=== PATIENT | male | born 1960 | race Caucasian/White ===

== ENCOUNTER 2018-03-27 08:59 | Emergency (ER) | payer MEDICARE, OTHER ==
[~2018-03-27] VITALS: Ht 172.7 cm; Wt 90.7 kg
--- NOTE | 2018-03-27 09:22 | PHYS DOC ---
Past History Past Medical History: COPD, Diabetes, Hypertension Past Surgical History: Cholecystectomy, Other Alcohol Use: Rarely Drug Use: Marijuana Adult General Chief Complaint Chief Complaint: SHORTNESS OF BREATH HPI HPI Patient is a 58-year-old male who presents with complaint of cough and shortness of breath for the last week and a half. Patient states that shortness of breath is getting worse with time and states that he has had fever as well. He states that cough is been productive but he is having some difficulty getting sputum up. He denies any chest pain. Patient states that shortness of breath is worsened with minimal exertion. He denies any lower extremity swelling or pain. Review of Systems Review of Systems Constitutional: Complains of fever and chills [] Respiratory: Complains of cough and shortness of breath [] Cardiovascular: No additional information not addressed in HPI [] GI: Denies abdominal pain, nausea, vomiting or diarrhea [] Neurologic: Denies headache, focal weakness or sensory changes [] All other systems were reviewed and found to be within normal limits, except as documented in this note. Current Medications Current Medications Current Medications Medications (Trade) Dose Ordered Sig/Fidencio Start Time Stop Time Status Last Admin Dose Admin Albuterol/ Ipratropium (Duoneb) 3 ml 1X ONCE 03/27/18 09:30 03/27/18 09:31 UNV Physical Exam Physical Exam Constitutional: Well developed, well nourished, no acute distress, non-toxic appearance. [] HENT: Normocephalic, atraumatic, bilateral external ears normal, oropharynx moist, no oral exudates, nose normal. [] Eyes: PERRLA, EOMI, conjunctiva normal, no discharge. [] Neck: Normal range of motion, no tenderness, supple, no stridor. [] Cardiovascular: Regular rate and rhythm [] Lungs & Thorax: Fairly good air movement is noted throughout with inspiratory rhonchi bilaterally to auscultation [] Abdomen: Bowel sounds normal, soft, no tenderness. [] Skin: Warm, dry, no erythema, no rash. [] Extremities: No tenderness, no cyanosis, no clubbing, ROM intact, no edema. [] Neurologic: Alert and oriented X 3, no focal deficits noted. [] Current Patient Data Vital Signs Vital Signs Date Time Temp Pulse Resp B/P (MAP) Pulse Ox O2 Delivery O2 Flow Rate FiO2 03/27/18 09:14 98.2 80 24 93 Room Air EKG EKG EKG demonstrates sinus bradycardia with rate of 46.[] Radiology/Procedures Radiology/Procedures [] Impressions: Chest x-ray demonstrates no acute process. Course & Med Decision Making Course & Med Decision Making Pertinent Labs and Imaging studies reviewed. (See chart for details) [] Dragon Disclaimer Dragon Disclaimer This electronic medical record was generated, in whole or in part, using a voice recognition dictation system. Departure Departure: Impression: Primary Impression: Influenza A Additional Impression: Bronchitis Disposition: HOME, SELF-CARE Condition: STABLE Referrals: PCP,NO (PCP) Patient Instructions: Acute Bronchitis, Influenza, Adult Scripts Guaifenesin/Codeine Phosphate (CHERATUSSIN AC SYRUP) 118 Ml Liquid 5 ML PO PRN Q6HRS PRN for COUGH, #120 ML Prov: JOSE RODRIGUEZ Jr. DO 03/27/18 Amoxicillin/Potassium Clav (AUGMENTIN 875-125 TABLET) 1 Each Tablet 1 TAB PO BID for infection, #20 TAB Prov: JOSE RODRIGUEZ Jr. DO 03/27/18 Problem Qualifiers JOSE RODRIGUEZ Jr. DO Mar 27, 2018 09:22
[2018-03-27] MEDS ORDERED: IPRATRPIUM/ALBUTEROL 0.5/2.5MG 3 ML NEBU. NEB ONE (09:30)
--- NOTE | 2018-03-27 09:34 | RAD ---
Exam performed: 2 views of the chest. Indication: COUGH, FEVER X 4 DAYS Date of Service: 03/27/2018 9:19 AM . Comparison : None available Findings: PA and lateral radiographs of the chest reveal a normal cardiomediastinal contour. The lungs are clear. No pleural fluid is seen. The visualized osseous structures are unremarkable. Impression: No acute cardiopulmonary process seen. Electronically signed by: Tomasa Resendez MD (03/27/2018 9:29 AM) [place] [id number]
[2018-03-27 09:58] LABS: BASO # 0.1 x10^3/uL (0.0-0.2); BASO % 1 % (0-3); EOS % 0 % (0-3); HEMATOCRIT 46.5 % (39.0-53.0); LYMPH % 17 % (24-48); MEAN CORPUSCULAR HEMOGLOBIN 30 pg (25-35); MEAN CORPUSCULAR HGB CONC 34 g/dL (31-37); MEAN CORPUSCULAR VOLUME 88 fL (79-100); MONO # 0.6 x10^3/uL (0.0-1.1); MONO % 10 % (0-9); NEUT # 4.1 x10^3uL (1.8-7.7); NEUT % 71 % (31-73); PLATELET COUNT 164 x10^3/uL (140-400); RED BLOOD COUNT 5.29 x10^6/uL (4.30-5.70); RED CELL DISTRIBUTION WIDTH 14.1 % (11.5-14.5); WHITE BLOOD COUNT 5.8 x10^3/uL (4.0-11.0)
[2018-03-27] MEDS ORDERED: ALBUTEROL SULFATE 2.5 MG/3 ML NEBU. ONE (10:14)
[2018-03-27 10:17] LABS: ALBUMIN 3.9 g/dL (3.4-5.0); ALBUMIN/GLOBULIN RATIO 1.1 (1.0-1.7); CALCIUM 8.3 mg/dL (8.5-10.1); GFR 76.5; POTASSIUM 3.1 mmol/L (3.5-5.1); TOTAL BILIRUBIN 0.6 mg/dL (0.2-1.0); TOTAL PROTEIN 7.6 g/dL (6.4-8.2)
[2018-03-27 10:25] LABS: INFLUENZA A PATIENT POSITIVE (NEGATIVE); INFLUENZA B PATIENT NEGATIVE (NEGATIVE)
[2018-03-27] MEDS ORDERED: AMOX1TAB61 PO (11:00)
[2018-03-27] MEDS ORDERED: GUAI118L20 PO (11:00)
[2018-03-27 11:08] VITALS: BP 118/55
--- NOTE | 2018-03-27 18:07 | EKG ---
[address] [address] Test Date: 2018-03-27 Test Time: 09:50:46 Pat Name: ALISE STANTON Department: Room: Gender: M [employer] Professor: : [id number] Requested By: JOSE RODRIGUEZ Order Number: [id number] Reading MD: Americo Mccrary MD Measurements Intervals [place] Rate: 46 P: 48 SD: 178 QRS: 54 QRSD: 100 T: 46 QT: 472 QTc: 418 Interpretive Statements SINUS BRADYCARDIA Electronically Signed On 04-03-2018 8:47:11 ELECTROCARDIOGRAPHIC TECHNICIAN by Americo Mccrary MD
== END 2018-03-27 11:10 | disposition home or self-care (01) ==
LOC: ER 08:59
DX: J10.1 Influenza due to other identified influenza virus with other respiratory manifestations (principal); J44.9 Chronic obstructive pulmonary disease, unspecified; E11.9 Type 2 diabetes mellitus without complications; I10 Essential (primary) hypertension
CPT/HCPCS: 36415; 71046; 80053; 83880; 84484; 85025; 87040; 87804; 93005; 94640; 99284; J7620